=== PATIENT | female | born 1970 ===

== ENCOUNTER 2017-05-24 14:53 | Emergency (ER) | payer MEDICAID ==
[2017-05-24 15:23] VITALS: BMI 41.9
[2017-05-24 15:25] VITALS: RESP 18; O2SAT 100
--- NOTE | 2017-05-24 16:27 | C.PDOC ---
History Of Present Illness <Tavares Harrison DO - Last Filed: 05/24/17 16:27> <Chery Dasilva - Last Filed: 05/24/17 16:37> 46 y/o female presents to the ED c/o chest pain and back pain on and off for two days . The patient has no prior medical problems. The patient's Physician is Dr. Lr. The patient denies dizziness, fever, chills, headaches, swelling , and vomiting. (Tavares Harrison DO) History Per: Patient History/Exam Limitations: no limitations Onset/Duration Of Symptoms: Days Current Symptoms Are (Timing): Still Present Previous Symptoms: Back Pain Recent travel outside of the [place]: No Additional History Per: Patient <Tavares Harrison DO - Last Filed: 05/24/17 16:27> <Chery Dasilva - Last Filed: 05/24/17 16:37> Time Seen by Provider: 05/24/17 15:47 Chief Complaint (Nursing): Chest Pain Past Medical History Reviewed: Historical Data, Nursing Documentation, Vital Signs Surgical History: No Surg Hx Family History: States: No Known Family Hx - Social History Hx Tobacco Use: No Hx Alcohol Use: Yes Hx Substance Use: No - Immunization History Hx Tetanus Toxoid Vaccination: No Hx Influenza Vaccination: No Hx Pneumococcal Vaccination: No <Tavares Harrison DO - Last Filed: 05/24/17 16:27> Vital Signs: Last Vital Signs Temp 97.9 F 05/24/17 15:22 Pulse 66 05/24/17 15:22 Resp 18 05/24/17 15:22 BP 112/65 05/24/17 15:22 Pulse Ox 100 05/24/17 16:33 Review Of Systems Except As Marked, All Systems Reviewed And Found Negative. Constitutional: Negative for: Fever, Chills Cardiovascular: Positive for: Chest Pain. Negative for: Palpitations Respiratory: Negative for: Cough, Shortness of Breath, SOB with Excertion Gastrointestinal: Negative for: Nausea, Vomiting, Abdominal Pain, Diarrhea, Constipation Musculoskeletal: Positive for: Back Pain Skin: Negative for: Rash <Tavares Harrison DO Last Filed: 05/24/17 16:27> Physical Exam - Physical Exam Appears: Non-toxic, No Acute Distress Skin: Warm, Dry Head: Atraumatic, Normacephalic Eye(s): bilateral: PERRL Oral Mucosa: Moist Neck: Supple Chest: Symmetrical Cardiovascular: Rhythm Regular Respiratory: No Rales, No Rhonchi, No Wheezing, Other ( reproducible in the chest wall ) Gastrointestinal/Abdominal: Soft, No Tenderness, No Guarding, No Rebound Extremity: Tenderness (paralumbar), Capillary Refill (2<sec.) Neurological/Psych: Oriented x3, Normal Speech, Normal Cognition Gait: Steady <Tavares Harrison DO - Last Filed: 05/24/17 16:27> ED Course And Treatment O2 Sat by Pulse Oximetry: 100 (RA) <Tavares Harrison DO - Last Filed: 05/24/17 16:27> - Laboratory Results Result Diagrams: 05/24/17 16:24 <Chery Dasilva - Last Filed: 05/24/17 16:37> Medical Decision Making <Tavares Harrison DO - Last Filed: 05/24/17 16:27> <Chery Dasilva - Last Filed: 05/24/17 16:37> Medical Decision Making: Toradol and IV fluids have been administered . (Tavares Harrison DO) Disposition <Tavares Harrison DO - Last Filed: 05/24/17 16:27> <Chery Dasilva - Last Filed: 05/24/17 16:37> - Disposition Forms: [facility] (Welsh) <Hunter ALMONTETavares Last Filed: 05/24/17 16:27> - PA / DRUG ENFORCEMENT AGENT / Resident Statement CITLALLI has examined the patient and agrees with the treatment plan. - Scribe Statement The provider has reviewed the documentation as recorded by the Scribe <Chery Dasilva - Last Filed: 05/24/17 16:37> - Scribe Statement Earnestine Randolph All medical record entries made by the Scribe were at my direction and personally dictated by me. I have reviewed the chart and agree that the record accurately reflects my personal performance of the history, physical exam, medical decision making, and the department course for this patient. I have also personally directed, reviewed, and agree with the discharge instructions and disposition. (Chery Dasilva
[2017-05-24 16:29] LABS: BASO # 0.1 K/uL (0.0-0.2); BASO % 0.9 % (0.0-2.0); EOS # 0.3 K/uL (0.0-0.7); EOS % 4.9 % (0.0-4.0); HEMATOCRIT 36.9 % (34.0-47.0); LYMPH # 2.1 K/uL (1.0-4.3); LYMPH % 33.3 % (20.0-40.0); MEAN CELL VOLUME 85.2 fL (81.0-99.0); MEAN CORPUSCULAR HEMOGLOBIN 27.8 pg (27.0-31.0); MEAN CORPUSCULAR HGB CONC 32.6 g/dL (33.0-37.0); MEAN PLATELET VOLUME 9.2 fL (7.2-11.7); MONO # 0.6 K/uL (0.0-0.8); MONO % 9.5 % (0.0-10.0); RED CELL DISTRIBUTION WIDTH 14.3 % (11.5-14.5); WHITE BLOOD COUNT 6.4 K/uL (4.8-10.8)
[2017-05-24 16:37] LABS: RBC URINE < 1 /hpf (0-3); URINE BILIRUBIN NEGATIVE (NEGATIVE); URINE BLOOD NEGATIVE (NEGATIVE); URINE COLOR Yellow (YELLOW); URINE GLUCOSE (UA) NORMAL (Normal); URINE KETONE NEGATIVE (NEGATIVE); URINE LEUKOCYTE ESTERASE TRACE Leu/uL (Negative); URINE PROTEIN NEGATIVE (NEGATIVE); URINE UROBILINOGEN NORMAL mg/dL (0.2-1.0); WBC URINE < 1 /hpf (0-5)
--- NOTE | 2017-05-24 16:38 | C.PDOC ---
History Of Present Illness 46 y/o female presents to the ED c/o chest pain and back pain on and off for two days . Chest and back pain worst with movement. The patient has no prior medical problems. The patient's Physician is Dr. Lr. The patient denies dizziness, fever, chills, headaches, swelling, and vomiting. Time Seen by Provider: 05/24/17 15:47 Chief Complaint (Nursing): Chest Pain History Per: Patient Onset/Duration Of Symptoms: Days Current Symptoms Are (Timing): Still Present Severity: Mild Previous Symptoms: Back Pain Recent travel outside of the [place]: No Additional History Per: Patient Past Medical History Reviewed: Historical Data, Nursing Documentation, Vital Signs Vital Signs: Last Vital Signs Temp 97.8 F 05/24/17 17:44 Pulse 64 05/24/17 17:44 Resp 18 05/24/17 17:44 BP 107/76 05/24/17 17:44 Pulse Ox 100 05/24/17 18:03 - Medical History PMH: No Chronic Diseases Surgical History: No Surg Hx Family History: States: No Known Family Hx - Social History Hx Tobacco Use: No Hx Alcohol Use: Yes Hx Substance Use: No - Immunization History Hx Tetanus Toxoid Vaccination: No Hx Influenza Vaccination: No Hx Pneumococcal Vaccination: No Review Of Systems Except As Marked, All Systems Reviewed And Found Negative. Constitutional: Negative for: Fever, Chills Cardiovascular: Positive for: Chest Pain. Negative for: Palpitations Respiratory: Negative for: Cough, Shortness of Breath Gastrointestinal: Negative for: Nausea, Vomiting, Abdominal Pain, Diarrhea, Constipation Musculoskeletal: Positive for: Back Pain Skin: Negative for: Rash Physical Exam - Physical Exam Appears: Non-toxic, No Acute Distress Skin: Warm, Dry Head: Atraumatic, Normacephalic Eye(s): bilateral: PERRL Oral Mucosa: Moist Throat: Normal Neck: Supple Chest: Symmetrical, Tenderness (anterior chest wall), Other (reproducible in the chest wall) Cardiovascular: Rhythm Regular Respiratory: Normal Breath Sounds, No Rales, No Rhonchi, No Wheezing Gastrointestinal/Abdominal: Soft, No Tenderness, No Guarding, No Rebound Back: Other (paralumbar tenderness) Extremity: Normal ROM, Capillary Refill (2<Sec.) Neurological/Psych: Oriented x3, Normal Speech, Normal Cognition Gait: Steady ED Course And Treatment - Laboratory Results Result Diagrams: 05/24/17 16:24 05/24/17 16:24 Lab Interpretation: Normal ECG: Interpreted By Me ECG Rhythm: Sinus Rhythm ECG Interpretation: Normal Rate From EC O2 Sat by Pulse Oximetry: 100 Pulse Ox Interpretation: Normal - Radiology CXR: Interpreted by Me CXR Interpretation: Yes: No Acute Disease Progress Note: Treated with toradol IV with relief. Upon reassesment, the patient is aferbile. Lungs clear, The patient is comfortable and no longer feels the chest and back pain. The patient is advised to have a 1-2 day follow up with her PMD for further evaluation. Reassessment Condition: Improved Medical Decision Making Medical Decision Making: IV fluids and Toradol were administered. Disposition Counseled Patient/Family Regarding: Studies Performed, Diagnosis, Need For Followup, Rx Given - Disposition Referrals: Oh Lr MD [Staff Provider] - Disposition: HOME/ ROUTINE Disposition Time: 18:00 Condition: STABLE Additional Instructions: Return to ED if any increase symptoms Prescriptions: Cyclobenzaprine [Flexeril] 10 mg PO BID #12 tab Naproxen [Naprosyn] 1 tab PO BID PRN #25 tab PRN Reason: Pain Instructions: Back Pain (ED), Chest Wall Pain (ED) Forms: [employer] (Czech) - POA Present On Arrival: None - Clinical Impression Clinical Impression: Chest pain, Low back strain, Chest wall pain - PA / AIRCRAFT AIR CONDITIONING MECHANIC / Resident Statement MD/DO has examined the patient and agrees with the treatment plan. - Scribe Statement The provider has reviewed the documentation as recorded by the Ervin Randolph All medical record entries made by the Noelibcarolee were at my direction and personally dictated by me. I have reviewed the chart and agree that the record accurately reflects my personal performance of the history, physical exam, medical decision making, and the department course for this patient. I have also personally directed, reviewed, and agree with the discharge instructions and disposition.
[2017-05-24 16:40] LABS: ALB/GLOB RATIO 1.2 (1.0-2.1); ALKALINE PHOSPHATASE 94 U/L (38-126); ALT/SGPT 34 U/L (9-52); AST/SGOT 22 U/L (14-36); BILIRUBIN,TOTAL 0.4 mg/dL (0.2-1.3); BLOOD UREA NITROGEN 13 mg/dL (7-17); CALCIUM 8.6 mg/dl (8.6-10.4); CARBON DIOXIDE 27 mmol/L (22-30); CHLORIDE 104 mmol/L (98-107); GFR AFRICAN-AMERICAN > 60; GLUCOSE,RANDOM 91 mg/dL (65-105); POTASSIUM 3.8 mmol/L (3.6-5.2); SODIUM 137 mmol/L (132-148); TOTAL PROTEIN 7.2 g/dL (6.3-8.3)
[2017-05-24 17:45] VITALS: BP 107/76; PULSE 64; TEMP 97.8
--- NOTE | 2017-05-24 18:26 | RAD ---
HISTORY: SOB COMPARISON: Chest radiographs 07/08/2015. TECHNIQUE: Chest PA and lateral FINDINGS: LUNGS: No active pulmonary disease. PLEURA: No significant pleural effusion identified. No pneumothorax apparent. CARDIOVASCULAR: Mild cardiomegaly appears stable. No pulmonary vascular derangement. OSSEOUS STRUCTURES: No significant abnormalities. VISUALIZED UPPER ABDOMEN: Normal. OTHER FINDINGS: None. IMPRESSION: Mild cardiomegaly. No pulmonary vascular derangement. No infiltrate or pleural effusion bilaterally.
== END 2017-05-24 18:41 | disposition home or self-care (01) ==
LOC: C.ER 14:53
DX: S39.012A Strain of muscle, fascia and tendon of lower back, initial encounter (principal); X58.XXXA Exposure to other specified factors, initial encounter; R07.89 Other chest pain
CPT/HCPCS: 71020; 80053; 81001; 83690; 84484; 84703; 85025; 96374; 99285; J1885

== ENCOUNTER 2017-09-16 12:28 | Emergency (ER) | payer MEDICAID ==
[2017-09-16 12:28] VITALS: BMI 41.9
[2017-09-16 12:46] VITALS: O2SAT 100
[2017-09-16 14:00] LABS: HCG,QUALITATIVE URINE NEGATIVE (NEGATIVE)
--- NOTE | 2017-09-16 14:06 | C.PDOC ---
History Of Present Illness 30 y/o female presents to the ED complaining of pain to the left posterior thigh , left buttock, and left lower back for 1 week. No injury or fall. Denies any recent heavy lifting. Patient saw her primary doctor and was prescribed Motrin. Reports pain is worsening and was not relieved by the Motrin today, prompting her to come in for further evaluation. Denies any fever, chills, hematuria, incontinence of bowel/bladder, or lower extremity weakness. Time Seen by Provider: 09/16/17 12:50 Chief Complaint (Nursing): Back Pain History Per: Patient History/Exam Limitations: no limitations Onset/Duration Of Symptoms: Days (x 1 week) Current Symptoms Are (Timing): Still Present Past Medical History Reviewed: Historical Data, Nursing Documentation, Vital Signs Vital Signs: Last Vital Signs Temp 98.0 F 09/16/17 12:43 Pulse 72 09/16/17 12:43 Resp 20 09/16/17 12:43 BP 129/76 09/16/17 12:43 Pulse Ox 100 09/16/17 14:10 - Medical History PMH: No Chronic Diseases Other Surgeries: Right lumpectomy, Tubal ligation Family History: States: Unknown Family Hx - Social History Hx Tobacco Use: No (Former) Hx Alcohol Use: Yes Hx Substance Use: No - Immunization History Hx Tetanus Toxoid Vaccination: No Hx Influenza Vaccination: Yes Hx Pneumococcal Vaccination: No Review Of Systems Except As Marked, All Systems Reviewed And Found Negative. Constitutional: Negative for: Fever, Chills Genitourinary: Negative for: Dysuria, Incontinence, Hematuria Musculoskeletal: Positive for: Back Pain (left back, buttock, and posterior thigh) Neurological: Negative for: Weakness, Numbness Physical Exam - Physical Exam Appears: Non-toxic, No Acute Distress Skin: Normal Color, Warm, Dry Head: Atraumatic, Normacephalic Eye(s): bilateral: Normal Inspection, PERRL, EOMI Nose: Normal Back: No Vertebral Tenderness, Paraspinal Tenderness (to left paralumbar region) , Straight Leg Raising ((+) straight leg raise at 60 degrees on the left) Extremity: Tenderness (to the left buttock and left posterior thigh), No Deformity, No Swelling (or erythema) Pulses: Left Dorsalis Pedis: Normal, Right Dorsalis Pedis: Normal Neurological/Psych: Oriented x3, Normal Speech, Normal Motor, Normal Sensation, No Other (focal deficits) ED Course And Treatment O2 Sat by Pulse Oximetry: 100 (RA) Pulse Ox Interpretation: Normal Progress Note: Ordered UA and urine test. Disposition - Disposition Referrals: Oh Lr MD [Staff Provider] - Disposition: HOME/ ROUTINE Disposition Time: 16:37 Condition: STABLE Additional Instructions: Follow up with PMD within 1 week . Return to Ed immediately if feel worse. Prescriptions: Lidocaine 5% [Lidoderm] 1 patch TP DAILY #30 patch Gabapentin [Neurontin] 600 mg PO QPM #10 tab Ketorolac Tromethamine [Toradol] 10 mg PO TID #30 tab diaZEpam [Valium] 2 mg PO TID #15 tab Instructions: Sciatica Forms: [employer] (Maltese) - Clinical Impression Clinical Impression: Sciatica - PA / TIME MOTION ANALYST / Resident Statement MD/DO has reviewed & agrees with the documentation as recorded. - Scribe Statement The provider has reviewed the documentation as recorded by the Scribe (Allison Llanes) All medical record entries made by the Scribe were at my direction and personally dictated by me. I have reviewed the chart and agree that the record accurately reflects my personal performance of the history, physical exam, medical decision making, and the department course for this patient. I have also personally directed, reviewed, and agree with the discharge instructions and disposition.
[2017-09-16 14:16] LABS: SQUAMOUS EPITHIAL 1 /hpf (0-5); URINE BILIRUBIN NEGATIVE (NEGATIVE); URINE BLOOD NEGATIVE (NEGATIVE); URINE CLARITY Hazy (Clear); URINE COLOR Yellow (YELLOW); URINE GLUCOSE (UA) NORMAL (Normal); URINE LEUKOCYTE ESTERASE NEG Leu/uL (Negative); URINE PROTEIN NEGATIVE (NEGATIVE); URINE UROBILINOGEN NORMAL mg/dL (0.2-1.0)
[2017-09-16] MEDS ORDERED: Lidocaine 5% Patch TD STA (15:06)
[2017-09-16] MEDS ORDERED: Lidocaine 5% Patch TD ONE (15:54)
--- NOTE | 2017-09-16 16:50 | RAD ---
PROCEDURE: Radiographs of the Lumbar Spine. HISTORY: Low back pain, left sciatica No antecedent history of prior trauma COMPARISON: No prior. FINDINGS: BONES: Normal alignment. No listhesis. No fracture. DISC SPACES: Unremarkable. OTHER FINDINGS: None. IMPRESSION: Unremarkable radiographs of the lumbar spine.
[2017-09-16 16:57] VITALS: BP 118/74; PULSE 71; RESP 16; TEMP 98.2
== END 2017-09-16 16:57 | disposition home or self-care (01) ==
LOC: C.ER 12:28
DX: M54.32 Sciatica, left side (principal)
CPT/HCPCS: 72100; 81001; 84703; 96372; 99284; J1885

== ENCOUNTER 2018-09-15 12:37 | Outpatient (CLI) | payer MEDICAID | END 2018-09-15 12:38 | disposition home or self-care (01) | LOC: C.MAMMO 12:38 | DX: Z12.31 Encounter for screening mammogram for malignant neoplasm of breast (principal) ==

== ENCOUNTER 2018-09-22 15:29 | Observation (INO) | payer MEDICAID ==
--- NOTE | 2018-09-22 16:24 | C.PDOC ---
History Of Present Illness 47 y/o female, otherwise well, presents to the ED complaining of mid-sternal chest pressure and "pulsing" sensation for 2 days. Pain is constant and associated with mild lightheadedness and nausea. Patient reports symptoms are worse when lying down and at night. She also notes her legs have been mildly swollen. Otherwise patient denies any SOB, calf pain, vomiting, abdominal pain, dark or bloody stools, fever, or productive cough. She denies PMHx of hypertension but states her pressure was elevated at her last doctor's visit 2 years ago. Patient also denies any hx of smoking. She reports family history of [place] in her mother at age 63. Time Seen by Provider: 09/22/18 16:00 Chief Complaint (Nursing): Chest Pain History Per: Patient History/Exam Limitations: no limitations Onset/Duration Of Symptoms: Days (x 2) Current Symptoms Are (Timing): Still Present Quality: Pressure Past Medical History Reviewed: Historical Data, Nursing Documentation, Vital Signs Vital Signs: Last Vital Signs Temp 98.2 F 09/22/18 15:56 Pulse 91 H 09/22/18 15:56 Resp 18 09/22/18 15:56 BP 144/83 09/22/18 15:56 Pulse Ox 100 09/22/18 15:56 - Medical History PMH: No Chronic Diseases Family History: States: [place] (mother, 63) - Social History Hx Tobacco Use: No (Former) Hx Alcohol Use: Yes (Occasional) Hx Substance Use: No - Immunization History Hx Tetanus Toxoid Vaccination: No Hx Influenza Vaccination: Yes Hx Pneumococcal Vaccination: No Review Of Systems Except As Marked, All Systems Reviewed And Found Negative. Constitutional: Negative for: Fever, Chills, Sweats Eyes: Negative for: Vision Change Cardiovascular: Positive for: Chest Pain, Light Headedness. Negative for: Palpitations Respiratory: Negative for: Cough, Shortness of Breath Gastrointestinal: Positive for: Nausea. Negative for: Vomiting, Abdominal Pain, Diarrhea Musculoskeletal: Positive for: Other (Lower extremity swelling). Negative for: Leg Pain Skin: Negative for: Rash Neurological: Negative for: Weakness, Numbness, Headache Physical Exam - Physical Exam Appears: Non-toxic, No Acute Distress, Other (Morbidly obese female) Skin: Normal Color, Warm, Dry Head: Atraumatic, Normacephalic Eye(s): bilateral: Normal Inspection, PERRL, EOMI Oral Mucosa: Moist Neck: Normal ROM Chest: Symmetrical, No Tenderness Cardiovascular: Rhythm Regular, No Murmur Respiratory: No Rales, No Rhonchi, No Wheezing, Other (Lungs CTA bilaterally) Gastrointestinal/Abdominal: Soft, No Tenderness, No Distention Extremity: Normal ROM, No Calf Tenderness, No Deformity, Swelling (Non-pitting edema to the lower extremities, right > left) Pulses: Left Dorsalis Pedis: Normal, Right Dorsalis Pedis: Normal Neurological/Psych: Oriented x3, Normal Speech, Normal Cranial Nerves, Normal Motor, Normal Sensation Gait: Steady ED Course And Treatment - Laboratory Results Result Diagrams: 09/22/18 16:42 09/22/18 16:42 ECG: Interpreted By Me, Viewed By Me ECG Rhythm: Sinus Rhythm Interpretation Of ECG: flipped Ts in the inferior leads, no ST elevations or depressions, Q waves in the inferior leads Rate From EC O2 Sat by Pulse Oximetry: 100 Pulse Ox Interpretation: Normal Medical Decision Making Medical Decision Making: Initial Impression: Chest Pain Differential diagnosis includes but is limited to: gastritis, cardiac disease, angina Initial Plan: - EKG - Blood work - Urinalysis - Reassess Labs reviewed. Trop negative. Discussed results with patient. 17:[address] Lr, will admit patient for observation of chest pain. Disposition Discussed With .: Oh Lr - Disposition Disposition: HOSPITALIZED Disposition Time: 17:32 Condition: STABLE - Clinical Impression Clinical Impression: Chest discomfort - Scribe Statement The provider has reviewed the documentation as recorded by the Ervin Llanes Provider Attestation: All medical record entries made by the Ervin were at my direction and personally dictated by me. I have reviewed the chart and agree that the record accurately reflects my personal performance of the history, physical exam, medical decision making, and the department course for this patient. I have also personally directed, reviewed, and agree with the discharge instructions and disposition. Decision To Admit - Pt Status Changed To: Hospital Disposition Of: Observation - . Bed Request Type: Telemetry Admitting Physician: Oh Lr Patient Diagnosis: Chest discomfort
[2018-09-22 16:47] LABS: BASO # 0.1 K/uL (0.0-0.2); BASO % 1.2 % (0.0-2.0); EOS # 0.3 K/uL (0.0-0.7); EOS % 3.8 % (0.0-4.0); HEMOGLOBIN 11.8 g/dL (11.0-16.0); LYMPH # 1.7 K/uL (1.0-4.3); LYMPH % 23.5 % (20.0-40.0); MEAN CORPUSCULAR HGB CONC 32.9 g/dL (33.0-37.0); MEAN PLATELET VOLUME 8.8 fL (7.2-11.7); MONO # 0.8 K/uL (0.0-0.8); MONO % 10.6 % (0.0-10.0); NEUT # 4.4 K/uL (1.8-7.0); NEUT % 60.9 % (50.0-75.0); RBC 4.36 Mil/uL (3.80-5.20); RED CELL DISTRIBUTION WIDTH 15.3 % (11.5-14.5); WHITE BLOOD COUNT 7.2 K/uL (4.8-10.8)
[2018-09-22 16:58] LABS: ALB/GLOB RATIO 1.2 (1.0-2.1); ALBUMIN 3.9 g/dL (3.5-5.0); ALT/SGPT 10 U/L (9-52); AST/SGOT 27 U/L (14-36); BLOOD UREA NITROGEN 12 mg/dL (7-17); CALCIUM 9.3 mg/dl (8.6-10.4); GFR NON-AFRICAN AMERICAN > 60
[2018-09-22 17:17] LABS: HCG,QUALITATIVE URINE NEGATIVE (NEGATIVE)
[2018-09-22 17:19] LABS: SQUAMOUS EPITHIAL 6 /hpf (0-5); URINE BACTERIA FEW (<OCC); URINE BILIRUBIN NEGATIVE (NEGATIVE); URINE BLOOD 3+ (NEGATIVE); URINE CLARITY Hazy (Clear); URINE COLOR Red (YELLOW); URINE GLUCOSE (UA) NORMAL (Normal); URINE LEUKOCYTE ESTERASE TRACE Leu/uL (Negative); URINE PROTEIN 2+ mg/dL (NEGATIVE); URINE UROBILINOGEN NORMAL mg/dL (0.2-1.0)
[2018-09-22 17:58] VITALS: BMI 38.7
[2018-09-22] MEDS ORDERED: Enoxaparin 40 mg Syringe SC STA (20:15)
[2018-09-23 02:23] LABS: CK-MB 0.43 ng/mL (0.0-3.38)
[2018-09-23 07:40] VITALS: RESP 20
[2018-09-23] MEDS ORDERED: Caffeine Citrated **INJ** 20 MG/ML IV ONE (08:14)
[2018-09-23 08:22] LABS: HDL CHOLESTEROL 41 mg/dL (30-70)
[2018-09-23 08:42] LABS: LDL CHOLESTEROL 128 mg/dL (0-129)
[2018-09-23 08:43] LABS: CK-MB 0.32 ng/mL (0.0-3.38)
[2018-09-23] MEDS: Enoxaparin 40 mg Syringe SC SCH (14:20)
--- NOTE | 2018-09-23 19:58 | CARD ---
APPROVED REPORT Date of service: 09/23/2018 EXAM: Two-dimensional and M-mode echocardiogram with Doppler and color Doppler. INDICATION Chest Pain alcohol 2D DIMENSIONS IVSd1.0 (0.7-1.1cm)LVDd4.2 (3.9-5.9cm) PWd0.8 (0.7-1.1cm)LA Hgkrow64 (18-58mL) LVDs2.4 (2.5-4.0cm)FS (%) 42.6 % LVEF (%)74.0 (>50%)LVEF (Conner's)68.54 % M-Mode DIMENSIONS Left Atrium (MM)4.73 (2.5-4.0cm)IVSd0.90 (0.7-1.1cm) Aortic Root3.15 (2.2-3.7cm)LVDd4.55 (4.0-5.6cm) Aortic Cusp Exc.2.37 (1.5-2.0cm)PWd0.78 (0.7-1.1cm) FS (%) 47 %LVDs2.43 (2.0-3.8cm) LVEF (%)78 (>50%) Mitral Valve MV E Jtqsqomy90.6cm/sMV A Lgmvgcor30.8cm/sE/A ratio0.9 TDI Lateral E' Peak V11.64cm/sMedial E' Peak V8.00cm/sE/Lateral E'7.2 E/Medial E'10.4 Tricuspid Valve TR Peak Twgopynl000fn/sTR Peak Gr.[id number] LEFT VENTRICLE The left ventricle is normal size. There is normal left ventricular wall thickness. Left ventricle systolic function is normal. The Ejection Fraction is >70%. There is normal LV segmental wall motion. Tissue Doppler imaging reveals abnormal left ventricular diastolic dysfunction. RIGHT VENTRICLE The right ventricle is normal size. There is normal right ventricular wall thickness. The right ventricular systolic function is normal. ATRIA The left atrium is mildly dilated. The right atrium size is normal. The interatrial septum is intact with no evidence for an atrial septal defect. AORTIC VALVE The aortic valve is normal in structure. No aortic regurgitation is present. There is no aortic valvular stenosis. There is no aortic valvular vegetation. MITRAL VALVE The mitral valve is normal in structure. There is no evidence of mitral valve prolapse. There is no mitral valve stenosis. Mitral regurgitation is mild. TRICUSPID VALVE The tricuspid valve is normal in structure. There is trace tricuspid regurgitation. Right ventricular systolic pressure is estimated at less than 30 mmHg. There is no pulmonary hypertension. PULMONIC VALVE The pulmonic valve is not well visualized. There is mild pulmonic valvular regurgitation. GREAT VESSELS The aortic root is normal in size. PERICARDIAL EFFUSION There is no significant pericardial effusion. <Conclusion> Left ventricle systolic function is normal. The Ejection Fraction is >70%. Diastolic dysfunction. No aortic regurgitation is present. Mitral regurgitation is mild. There is trace tricuspid regurgitation. There is no pulmonary hypertension. There is mild pulmonic valvular regurgitation.
--- NOTE | 2018-09-23 22:30 | CP.PCM.HP ---
Present on Admission - Present on Admission Any Indicators Present on Admission: No Past Patient History - Infectious Disease Hx of Infectious Diseases: None - Past Social History Smoking Status: Former Smoker - PSYCHIATRIC Hx Substance Use: No - SURGICAL HISTORY Hx Surgeries: Yes Hx Tubal Ligation: Yes Other/Comment: RIGHT LUMPECTOMY - ANESTHESIA Hx Anesthesia: Yes Hx Anesthesia Reactions: No Hx Malignant Hyperthermia: No Meds Allergies/Adverse Reactions: Allergies Allergy/AdvReac Type Severity Reaction Status Date / Time No Known Allergies Allergy Verified 09/22/18 15:55 Results - Vital Signs Recent Vital Signs: Last Vital Signs Temp 97.8 F 09/23/18 15:00 Pulse 67 09/23/18 15:00 Resp 20 09/23/18 15:00 BP 123/74 09/23/18 15:00 Pulse Ox 98 09/23/18 15:00 - Labs Result Diagrams: 09/22/18 16:42 09/22/18 16:42 Labs: Laboratory Results - last 24 hr 09/23/18 09/23/18 01:22 07:50 Total Creatine Kinase 93 80 CK-MB (Mass) 0.43 0.32 Troponin I < 0.0120 < 0.0120 Triglycerides 97 Cholesterol 190 LDL Cholesterol Direct 128 HDL Cholesterol 41
--- NOTE | 2018-09-23 22:30 | CP.PCM.PN ---
Subjective - Date & Time of Evaluation Date of Evaluation: 09/23/18 Time of Evaluation: 08:00 - Subjective Subjective: dictated Objective - Vital Signs/Intake and Output Vital Signs (last 24 hours): Temp Pulse Resp BP Pulse Ox 97.8 F 67 20 123/74 98 09/23/18 15:00 09/23/18 15:00 09/23/18 15:00 09/23/18 15:00 09/23/18 15:00 - Medications Medications: Current Medications Aspirin (Aspirin Chewable) 81 mg PO DAILY [facility] Last Admin: 09/23/18 14:20 Dose: 81 mg Enoxaparin Sodium (Lovenox) 40 mg SC DAILY [facility] Last Admin: 09/23/18 14:20 Dose: 40 mg Rosuvastatin Calcium (Crestor) 5 mg PO HS [facility] Last Admin: 09/23/18 22:16 Dose: Not Given - Labs Labs: 09/22/18 16:42 09/22/18 16:42
[2018-09-24 01:12] VITALS: O2SAT 99
--- NOTE | 2018-09-24 06:22 | CARD ---
APPROVED REPORT Date of service: 09/23/2018 Protocol: LEXISCAN Test Type: LEXISCAN STRESS Test Indications: CHEST PAIN Medical History: CHEST PAIN Target HR: 172 bpm Resting ECG: NSR Resting Heart Rate: 66 bpm Resting Blood Pressure: 134/80mmHg submaximum (85%): 146 bpm TEST SUMMARY PREINFSNHYPERV.28:[id number]/80.0. INFUSIONDOSE 100:300.00.01.067/.0. [id number]/80.0. PROCEDURE Pharmacologic stress testing was performed using 0.4mg per 5ml of regadenoson given intravenously over 7-10 seconds. POST EXERCISE Reason for Termination: Protocol Completed Target HR: No Max HR: 67 bpm 56% of Maximum Predicted HR: 172 bpm Exercise duration: 00:30 min:sec, 0 Stage Exercise capacity: 1.0METs Max Blood Pressure: 134/80mmHg Blood Pressure response to exercise: normal resting BP - appropriate response Heart Rate response to exercise: appropriate Chest Pain: No, none Angina index: 0 Arrhythmia: No, none ST Change: No, none Deviation: 0 mm INTERPRETATION Stress EKG Conclusion: NEGATIVE LEXISCAN STRESS TEST NORMAL BP RESPONSE TO LEXISCAN NUCLEAR STUDIES TO BE READ SEPARATELY EXAM: Myocardial Perfusion STRESS/REST Imaging Protocol The imaging protocol used to acquire images was Stress Tc-99m/rest Tc-99m 1 day Stress Spect myocardial perfusion imaging was performed in supine position 45 minutes following the injection of 13.2 mCi of Tc-99 Myoview. Gated Rest Spect was performed 45 minutes after intravenous 33 mCi Tc-99 Myoview injection. The images were gated to evaluate regional wall motion and calculate ventricular ejection fraction.Images were reconstructed using backfilter projection method in short horizontal and verticle long axis. Spect slices were generated. RESTING DATA EDV87.55viAO6.80L/min1/3 Pk. Filling Rate2.49EDV/sec LV Time to Pk. Filling Szwy142.06msec ESV15.00mlMyocardial Yxnd200.00gLV Time to Pk. Ejection Imco948.49msec Pk. Fill Rate3.78EDV/secAv. Heart Rate67.00bpm EF83.00%Pk. Emptying Rate3.90ESV/sec STRESS DATA EDV92.94kwGR8.00L/min ESV22.00mlMyocardial Teab022.00g Pk. Fill Rate3.06EDV/sec EF76.00%Pk. Emptying Rate4.31ESV/sec 1/3 Pk. Filling Rate1.39EDV/secRegional WT score at stress:0.00 LV Time to Pk. Filling Rate:241.93msecRegional WM score at stress:0.00 LV Time to Pk. Ejection Rate:135.97msecSummed WT score at stress:0.00 Av. Heart Rate71.00bpmSummed WM score at stress:0.00 LV Perf. Quant 17 Seg. SSS6.00 17 Seg. SRS4.00 17 Seg. SDS3.00 Stress Defect Extent (% LAD)0.00Rest Defect Extent (% LAD)1.90Rev. Defect Extent (% LAD)0.00 Stress Defect Extent (% LCX)15.00Rest Defect Extent (% LCX)18.80Rev. Defect Extent (% LCX)0.00 Stress Defect Extent (% RCA)0.00Rest Defect Extent (% RCA)0.00Rev. Defect Extent (% RCA)0.00 Stress Defect Extent (% MELISA)5.00Rest Defect Extent (% MELISA)7.60Rev. Defect Extent (% MELISA)0.00 IMPRESSION Normal Myocardial Perfusion exercise stress study Left Ventricle LV Function:Left ventricle systolic function is normal. The Ejection Fraction is >70%. Metabolism/Perfusion Defects: There is no stress-induced ischemia noted. There are no perfusion/metabolism defects. Conclusion 1. There is no stress-induced ischemia noted. 2. Left ventricle systolic function is normal. 3. The Ejection Fraction is >70%.
[2018-09-24 07:38] VITALS: BP 116/75; PULSE 80; TEMP 97.8
[2018-09-24 09:34] LABS: SQUAMOUS EPITHIAL 4 /hpf (0-5)
[2018-09-24 09:35] LABS: URINE BILIRUBIN NEGATIVE (NEGATIVE); URINE BLOOD 3+ (NEGATIVE); URINE CLARITY Hazy (Clear); URINE COLOR Red (YELLOW); URINE GLUCOSE (UA) NORMAL (Normal); URINE LEUKOCYTE ESTERASE NEG Leu/uL (Negative); URINE PROTEIN 2+ mg/dL (NEGATIVE); URINE UROBILINOGEN NORMAL mg/dL (0.2-1.0)
[2018-09-24] MEDS: Enoxaparin 40 mg Syringe SC SCH (10:15)
--- NOTE | 2018-09-24 10:53 | CP.PCM.PN ---
Subjective - Date & Time of Evaluation Date of Evaluation: 09/24/18 Time of Evaluation: 10:15 - Subjective Subjective: patient seen today denies any sob, chest pain, dizziness, N/V troponin x 3 - negative s/p stress test- negative , EF>70% vss and labs reviewed- stable Objective - Vital Signs/Intake and Output Vital Signs (last 24 hours): Temp Pulse Resp BP Pulse Ox 97.8 F 80 20 116/75 99 09/24/18 07:15 09/24/18 07:15 09/24/18 07:15 09/24/18 07:15 09/24/18 07:15 - Medications Medications: Current Medications Aspirin (Aspirin Chewable) 81 mg PO DAILY [facility] Last Admin: 09/24/18 10:15 Dose: 81 mg Enoxaparin Sodium (Lovenox) 40 mg SC DAILY [facility] Last Admin: 09/24/18 10:15 Dose: Not Given Rosuvastatin Calcium (Crestor) 5 mg PO HS [facility] Last Admin: 09/23/18 22:16 Dose: Not Given - Labs Labs: 09/22/18 16:42 09/22/18 16:42 Assessment and Plan - Assessment and Plan (Free Text) Assessment: A/P 47 y/o female, with no pmhx presents to the ED complaining of mid-sternal chest pressure and "pulsing" sensation for 2 days troponin x 3 - negative s/p stress test - negative and Ef>70% U/A - + for RBC , PATIENT HAVING MENSTRUAL PERIOD NOW D/W Dr. Lr, cleared for discharge home today and f/u with Dr. lr office in 1 week Discharge plan discussed with patient who understands and agrees with plan patient instructed to returns to ED IF SYMPTOMS RETURNS
--- NOTE | 2018-09-24 12:17 | HP ---
CHIEF COMPLAINT: Chest pain. HISTORY OF PRESENT ILLNESS: This is a 47-year-old female who is nonsmoker, non-ETOH user with no diabetes, hyperlipidemia, came in because of left upper sternal chest pain, nonradiating, not associated with diaphoresis, dizziness, nonexertional, worse with leaning forward. No fever. No chills. No nausea, vomiting, or diarrhea. She denies any history of dysuria, hematuria, pyuria. She denies any history of polyuria, polydipsia, polyphagia. PAST MEDICAL HISTORY: 1. Osteoarthritis of the ankle. 2. Obesity. SOCIAL HISTORY: Nonsmoker. Non-ETOH user. FAMILY HISTORY: Noncontributory. PHYSICAL EXAMINATION: GENERAL: An elderly female, in no acute distress. VITAL SIGNS: Blood pressure is 126/77, pulse 66, respiratory rate 20, temperature 98. SKIN: No rashes. HEENT: Atraumatic and normocephalic. Negative pallor. Negative jaundice. Extraocular movements are intact. NECK: Supple. No JVD. No lymph node. No thyromegaly. No carotid bruit. CHEST WALL: Bilateral symmetrical expansion. LUNGS: Clear. No rales. No rhonchi. CARDIOVASCULAR SYSTEM: S1 and S2, regular. ABDOMEN: Soft, nontender. Bowel sounds are positive. EXTREMITIES: No clubbing, cyanosis, or edema. CENTRAL NERVOUS SYSTEM: Awake, alert, and oriented x3. ASSESSMENT: 1. Noncardiac chest pain. 2. Morbid obesity. PLAN: Admit. Cardiac enzymes, echocardiogram and stress test. Oh Lr MD
--- NOTE | 2018-09-24 21:32 | CP.PCM.DIS ---
Provider - Provider Date of Admission: 09/22/18 17:32 Attending physician: Oh Lr MD Consults: 09/22/18 19:45 Cardiology Consult Routine Comment: Consulting Provider: Tavares Murray Consulting Physician: Tavares Murray Reason for Consult: Chest pain Time Spent in preparation of Discharge (in minutes): 30 Hospital Course - Lab Results Lab Results: Most Recent Lab Values WBC 7.2 K/uL (4.8-10.8) 09/22/18 16:42 RBC 4.36 Mil/uL (3.80-5.20) 09/22/18 16:42 Hgb 11.8 g/dL (11.0-16.0) 09/22/18 16:42 Hct 35.8 % (34.0-47.0) 09/22/18 16:42 MCV 82.0 fL (81.0-99.0) D 09/22/18 16:42 MCH 27.0 pg (27.0-31.0) 09/22/18 16:42 MCHC 32.9 g/dL (33.0-37.0) L 09/22/18 16:42 RDW 15.3 % (11.5-14.5) H 09/22/18 16:42 Plt Count 290 K/uL (130-400) 09/22/18 16:42 MPV 8.8 fL (7.2-11.7) 09/22/18 16:42 Neut % (Auto) 60.9 % (50.0-75.0) 09/22/18 16:42 Lymph % (Auto) 23.5 % (20.0-40.0) 09/22/18 16:42 [place] % (Auto) 10.6 % (0.0-10.0) H 09/22/18 16:42 Eos % (Auto) 3.8 % (0.0-4.0) 09/22/18 16:42 Baso % (Auto) 1.2 % (0.0-2.0) 09/22/18 16:42 Neut # (Auto) 4.4 K/uL (1.8-7.0) 09/22/18 16:42 Lymph # (Auto) 1.7 K/uL (1.0-4.3) 09/22/18 16:42 [place] # (Auto) 0.8 K/uL (0.0-0.8) 09/22/18 16:42 Eos # (Auto) 0.3 K/uL (0.0-0.7) 09/22/18 16:42 Baso # (Auto) 0.1 K/uL (0.0-0.2) 09/22/18 16:42 Sodium 137 mmol/L (132-148) 09/22/18 16:42 Potassium 3.8 mmol/L (3.6-5.2) 09/22/18 16:42 Chloride 104 mmol/L (98-107) 09/22/18 16:42 Carbon Dioxide 24 mmol/L (22-30) 09/22/18 16:42 Anion Gap 13 (10-20) 09/22/18 16:42 BUN 12 mg/dL (7-17) 09/22/18 16:42 Creatinine 0.7 mg/dL (0.7-1.2) 09/22/18 16:42 Est GFR ( Amer) > 60 09/22/18 16:42 Est GFR (Non-Af Amer) > 60 09/22/18 16:42 Random Glucose 107 mg/dL (65-105) H 09/22/18 16:42 Calcium 9.3 mg/dl (8.6-10.4) 09/22/18 16:42 Total Bilirubin 0.2 mg/dL (0.2-1.3) 09/22/18 16:42 AST 27 U/L (14-36) 09/22/18 16:42 ALT 10 U/L (9-52) 09/22/18 16:42 Alkaline Phosphatase 97 U/L (38-126) 09/22/18 16:42 Total Creatine Kinase 80 U/L (30-135) 09/23/18 07:50 CK-MB (Mass) 0.32 ng/mL (0.0-3.38) 09/23/18 07:50 Troponin I < 0.0120 ng/mL (0.00-0.120) 09/23/18 07:50 NT-Pro-B Natriuret Pep 27.0 pg/mL (0-450) 09/22/18 16:42 Total Protein 7.3 g/dL (6.3-8.3) 09/22/18 16:42 Albumin 3.9 g/dL (3.5-5.0) 09/22/18 16:42 Globulin 3.4 gm/dL (2.2-3.9) 09/22/18 16:42 Albumin/Globulin Ratio 1.2 (1.0-2.1) 09/22/18 16:42 Triglycerides 97 mg/dL (0-149) 09/23/18 07:50 Cholesterol 190 mg/dL (0-199) 09/23/18 07:50 LDL Cholesterol Direct 128 mg/dL (0-129) 09/23/18 07:50 HDL Cholesterol 41 mg/dL (30-70) 09/23/18 07:50 Urine Color Red (YELLOW) 09/24/18 09:16 Urine Clarity Hazy (Clear) 09/24/18 09:16 Urine pH 6.0 (5.0-8.0) 09/24/18 09:16 Ur Specific [place] 1.015 (1.003-1.030) 09/24/18 09:16 Urine Protein 2+ mg/dL (NEGATIVE) H 09/24/18 09:16 Urine Glucose (UA) Normal mg/dL (Normal) 09/24/18 09:16 Urine Ketones Negative mg/dL (NEGATIVE) 09/24/18 09:16 Urine Blood 3+ (NEGATIVE) H 09/24/18 09:16 Urine Nitrate Negative (NEGATIVE) 09/24/18 09:16 Urine Bilirubin Negative (NEGATIVE) 09/24/18 09:16 Urine Urobilinogen Normal mg/dL (0.2-1.0) 09/24/18 09:16 Ur Leukocyte Esterase Neg [place]/uL (Negative) 09/24/18 09:16 Urine WBC (Auto) 6 /hpf (0-5) H 09/24/18 09:16 Urine RBC (Auto) 7965 /hpf (0-3) H 09/24/18 09:16 Ur Squamous Epith Cells 4 /hpf (0-5) 09/24/18 09:16 Urine Bacteria Few (<OCC) H 09/22/18 16:53 Urine HCG, Qual Negative (NEGATIVE) 09/22/18 16:53 Discharge Plan - Follow Up Plan Condition: STABLE Disposition: HOME/ ROUTINE Instructions: Heart Healthy Diet, Chest Pain (DC) Additional Instructions: Please follow up with Dr. Lr office in 1 week Referrals: Oh Lr MD [Staff Provider] -
--- NOTE | 2018-09-25 00:12 | CP.PCM.CON ---
History of Present Illness - History of Present Illness History of Present Illness: CC: Chest pain 47 y/o female, otherwise well, presents to the ED complaining of mid-sternal chest pressure and "pulsing" sensation for 2 days. Pain is constant and associated with mild lightheadedness and nausea. Patient reports symptoms are worse when lying down and at night. She also notes her legs have been mildly swollen. Otherwise patient denies any SOB, calf pain, vomiting, abdominal pain, dark or bloody stools, fever, or productive cough. She denies PMHx of hypertension but states her pressure was elevated at her last doctor's visit 2 years ago. Patient also denies any hx of smoking. She reports family history of [place] in her mother at age 63. Chief Complaint (Nursing): Chest Pain History Per: Patient History/Exam Limitations: no limitations Onset/Duration Of Symptoms: Days (x 2) Current Symptoms Are (Timing): Still Present Quality: Pressure Past Medical History Reviewed: Historical Data, Nursing Documentation, Vital Signs Vital Signs: Last Vital Signs Temp 98.2 F 09/22/18 15:56 Pulse 91 H 09/22/18 15:56 Resp 18 09/22/18 15:56 BP 144/83 09/22/18 15:56 Pulse Ox 100 09/22/18 15:56 - Medical History PMH: No Chronic Diseases Family History: States: [place] (mother, 63) - Social History Hx Tobacco Use: No (Former) Hx Alcohol Use: Yes (Occasional) Hx Substance Use: No - Immunization History Hx Tetanus Toxoid Vaccination: No Hx Influenza Vaccination: Yes Hx Pneumococcal Vaccination: No Review Of Systems Except As Marked, All Systems Reviewed And Found Negative. Constitutional: Negative for: Fever, Chills, Sweats Eyes: Negative for: Vision Change Cardiovascular: Positive for: Chest Pain, Light Headedness. Negative for: Palpitations Respiratory: Negative for: Cough, Shortness of Breath Gastrointestinal: Positive for: Nausea. Negative for: Vomiting, Abdominal Pain, Diarrhea Musculoskeletal: Positive for: Other (Lower extremity swelling). Negative for: Leg Pain Skin: Negative for: Rash Neurological: Negative for: Weakness, Numbness, Headache Physical Exam - Physical Exam Appears: Non-toxic, No Acute Distress, Other (Morbidly obese female) Skin: Normal Color, Warm, Dry Head: Atraumatic, Normacephalic Eye(s): bilateral: Normal Inspection, PERRL, EOMI Oral Mucosa: Moist Neck: Normal ROM Chest: Symmetrical, No Tenderness Cardiovascular: Rhythm Regular, No Murmur Respiratory: No Rales, No Rhonchi, No Wheezing, Other (Lungs CTA bilaterally) Gastrointestinal/Abdominal: Soft, No Tenderness, No Distention Extremity: Normal ROM, No Calf Tenderness, No Deformity, Swelling (Non-pitting edema to the lower extremities, right > left) Pulses: Left Dorsalis Pedis: Normal, Right Dorsalis Pedis: Normal Neurological/Psych: Oriented x3, Normal Speech, Normal Cranial Nerves, Normal Motor, Normal Sensation Gait: Steady Past Patient History - Infectious Disease Hx of Infectious Diseases: None - Past Social History Smoking Status: Former Smoker - PSYCHIATRIC Hx Substance Use: No - SURGICAL HISTORY Hx Surgeries: Yes Hx Tubal Ligation: Yes Other/Comment: RIGHT LUMPECTOMY - ANESTHESIA Hx Anesthesia: Yes Hx Anesthesia Reactions: No Hx Malignant Hyperthermia: No Meds Allergies/Adverse Reactions: Allergies Allergy/AdvReac Type Severity Reaction Status Date / Time No Known Allergies Allergy Verified 09/22/18 15:55 Results - Vital Signs Recent Vital Signs: Last Vital Signs Temp 97.8 F 09/24/18 07:15 Pulse 80 09/24/18 07:15 Resp 20 09/24/18 07:15 BP 116/75 09/24/18 07:15 Pulse Ox 99 09/24/18 07:15 - Labs Result Diagrams: 09/22/18 16:42 09/22/18 16:42 Labs: Laboratory Results - last 24 hr 09/24/18 09:16 Urine Color Red Urine Clarity Hazy Urine pH 6.0 Ur Specific [place] 1.015 Urine Protein 2+ H Urine Glucose (UA) Normal Urine Ketones Negative Urine Blood 3+ H Urine Nitrate Negative Urine Bilirubin Negative Urine Urobilinogen Normal Ur Leukocyte Esterase Neg Urine WBC (Auto) 6 H Urine RBC (Auto) 7965 H Ur Squamous Epith Cells 4 Assessment & Plan - Assessment and Plan (Free Text) Assessment: Chest Pain HTN Patient scheduled for stress test and ECHO
--- NOTE | 2018-09-25 02:15 | DS ---
DISCHARGE DIAGNOSIS: Noncoronary chest pain. HISTORY: This is a 47-year-old female with history of obesity. She came in because of chest pain. AR was ruled out by three sets of negative cardiac enzymes, stress test is negative and she is for discharge. CONDITION UPON DISCHARGE: Stable. PHYSICAL EXAMINATION: LUNGS: Clear. ABDOMEN: Soft, nontender. Bowel sounds are positive. PLAN: Discharge. The patient will be followed up as outpatient. Oh Lr MD
== END 2018-09-24 12:46 | disposition home or self-care (01) ==
LOC: C.ER 15:29 → C.6T 17:32
PROVIDERS: ADMIT Internal Medicine; ATTEND Internal Medicine
DX: R07.89 Other chest pain (principal); E66.01 Morbid (severe) obesity due to excess calories; Z68.38 Body mass index [BMI] 38.0-38.9, adult; I10 Essential (primary) hypertension; Z87.891 Personal history of nicotine dependence
CPT/HCPCS: 36415; 78452; 80053; 80061; 81001; 83880; 84484; 84703; 85025; 93017; 93306; 99285; A9502; G0378; J1650; J2785